=== PATIENT | female | born 1970 | race African-American/Black ===

== ENCOUNTER → 2020-05-27 | Outpatient (CLI) | payer OTHER ==
[2015-06-12 12:32] VITALS: BP 137/89
[~2020-05-27] MED LIST: AMIT50TA PO; BUDE10.22 IH; CHOL10003 PO; CYCL10TA2 PO; ESCITALOPRAM OX10 MG PO; ESTR1TAB5 PO; LEVO200T PO; LORA10TA3 PO; PHEN37.5 PO; PROP20TA PO; SIMV20TA18 PO; TRAZ-118 PO; sumatriptan SQ
--- NOTE | 2020-05-27 16:18 | RAD ---
EXAM: US GUID NDL PLACE/ASPI/BX, DIGITAL DIAGNOSTIC LT 05/27/2020 2:00 PM INDICATION: Left breast mass COMPARISON: Left breast ultrasound 05/10/2020 TECHNIQUE/FINDINGS: The purpose of the procedure, risks and benefits were explained to the patient. Informed consent was obtained. A timeout was performed. The patient was placed supine on the ultrasound table. The 6 mm mass at 2:30, 4 cm from the nipple in the left breast was identified and overlying skin marked, prepped, draped in standard sterile fashion. Skin was anesthetized with 1 percent lidocaine. Next, 3 core biopsy samples were obtained with a coaxial 14-gauge biopsy device. Samples were placed in formalin and sent to the laboratory for analysis. At this point, the lesion was no longer visible. A ribbon biopsy marker was then placed at the biopsy site under ultrasound. [place] were removed, pressure held for hemostasis, and skin cleansed and covered with a dressing. The patient tolerated the procedure well and left in stable condition. Post clip mammogram demonstrates appropriate position of the clip immediately adjacent to the mass at 2:30, 4 cm the nipple. IMPRESSION:Technically successful biopsy of left breast mass. Appropriate position of biopsy clip. Electronically signed by: Ashly Vasquez MD (05/27/2020 4:15 PM) [id number]
--- NOTE | 2020-05-31 09:12 | PATHOLOGY ---
[facility] Accession Number: [id number] . 01 Material submitted: . breast - LEFT BREAST TISSUE, 2:30, 4CMFN. Modifiers: left . 01 Clinical history: . LEFT BREAST MASS . 02 Diagnosis: Breast tissue, left breast mass 2:30 needle biopsies: - Fibrocystic changes with focally clustered cysts showing papillary apocrine metaplasia and stromal fibrosis and chronic inflammation. (JPM:police surgeon; 05/30/2020) MBR 05/30/2020 1640 Local . 02 Comment: There is no atypia or evidence of malignancy. (JPM:police surgeon; 05/30/2020) . 02 Electronically signed: . Satnam Robin MD, Pathologist NPI- [id number] . 01 Gross description: . The specimen is received in formalin, labeled "Laya Crystal, left breast 230 4 cm FN" and consists of 3 needle cores of yellow tissue measuring between 1.0 cm and 1.2 cm in length and 0.2 cm each in diameter which are entirely submitted in A1-A3. The specimen was obtained at 2:58 PM on 05/27/2020 and placed in formalin at 3 PM. The cold ischemic time is 2 minutes and the total formalin fixation time is greater than 6 hours but less than 72 hours. (SDY; 05/29/2020) SYU/SYU 05/30/2020 1639 Local . 02 Pathologist provided ICD-10: N60.12, N60.82, N60.32 . 02 CPT . 545861 Specimen Comment: A courtesy copy of this report has been sent to [phone], [phone] Specimen Comment: [phone] Specimen Comment: Report sent to / DR RICHMOND Performed at: 01 [facility] [address], [place], [place] [id number] MD Lamont Yeager MD Phone: [phone] Performed at: 02 [facility] [address], [place] [id number] MD Satnam Robin MD Phone: [phone]
== END ==
LOC: US 13:49
PROVIDERS: ATTEND Nurse Practitioner Family
DX: N63.20 Unspecified lump in the left breast, unspecified quadrant (principal); N60.12 Diffuse cystic mastopathy of left breast; N60.82 Other benign mammary dysplasias of left breast; Z79.899 Other long term (current) drug therapy
CPT/HCPCS: 19083; 77065; C1713; 19081; 76942